=== PATIENT | female | born 1995 | race Caucasian/White ===

== ENCOUNTER 2019-07-08 01:34 | Emergency (ER) | payer SELFPAY ==
[~2019-07-08] VITALS: Ht 167.6 cm; Wt 88.0 kg
[~2019-07-08 01:34] MED LIST: BIRTH CONTROL
--- NOTE | 2019-07-08 01:40 | PHYS DOC ---
Past History Past Medical History: Alcoholism, Other Past Surgical History: Other Smoking: Non-smoker Alcohol Use: Occasionally Drug Use: None Adult General Chief Complaint Chief Complaint: ".. I accidently kicked 20 #cow garcia wt... I had left it in the floor... this right foot is swollen and starting to turn purple.. I took some ibuprofen 400, then tylenol 500 .. and then ibuprofen 400 befoe I [address] in.. 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 foot injury. Pt. accidently kicked a 20# cow garcia wt. . Has obvious edema and ecchymosis of distal Rt. foot. Localization of area toes 3 and 4. Negative upper foot squeeze, + distal foot squeeze. Pain with loading of toes 3 and 4. Distal neurovascular intact. No upper leg tenderness. Ankle stable. Heel stable. Patient is driving herself. Did take ibuprofen and Tylenol before presentation to the emergency department. History of previous right foot and ankle injury on 10/13/2014. Patient previously followed with Dr. Allan, currently follows with Daphney Camejo for care. Does have contacts with ill patients. No history immunosuppression. No history of travel outside [facility]. Is up-to-date with vaccinations including flu vaccination. Review of Systems Review of Systems Constitutional: Denies fever or chills [] Eyes: Denies change in visual acuity, redness, or eye pain [] HENT: Denies nasal congestion or sore throat [] Respiratory: Denies cough or shortness of breath [] Cardiovascular: No additional information not addressed in HPI [] GI: Denies abdominal pain, nausea, vomiting, bloody stools or diarrhea [] : Denies dysuria or hematuria [] Musculoskeletal: Complains of right foot injury Integument: Denies rash or skin lesions [] Neurologic: Denies headache, focal weakness or sensory changes [] Endocrine: Denies polyuria or polydipsia [] All other systems were reviewed and found to be within normal limits, except as documented in this note. Family History Family History Noncontributory presentation Current Medications Current Medications See nursing for home meds Allergies Allergies Allergies Coded Allergies Type Severity Reaction Last Updated Verified Penicillins Allergy Intermediate HIVES 10/13/14 Yes Physical Exam Physical Exam Constitutional: Well developed, well nourished, no acute distress, non-toxic appearance. [] HENT: Normocephalic, atraumatic, bilateral external ears normal, oropharynx moist, no oral exudates, nose normal. [] Eyes: PERRLA, EOMI, conjunctiva normal, no discharge. [] Neck: Normal range of motion, no tenderness, supple, no stridor. [] Cardiovascular:Heart rate regular rhythm, no murmur [] Lungs & Thorax: Bilateral breath sounds equal at apex auscultation [] Abdomen: Bowel sounds normal, soft, no tenderness, no masses, no pulsatile masses. [] Skin: Warm, dry, no erythema, no rash. [] Back: No tenderness, no CVA tenderness. [] Extremities: No tenderness, no cyanosis, no clubbing, ROM intact, no edema. [] Except findings of right foot injury as per history of present illness Neurologic: Alert and oriented X 3, normal motor function, normal sensory function, no focal deficits noted. [] Psychologic: Affect anxious, judgement normal, mood normal. [] EKG EKG [] Radiology/Procedures Radiology/Procedures [][place] [address] IMAGING REPORT Signed PATIENT: NARENDRA MILLER ACCOUNT: [id number] : 1995 LOCATION: ER AGE: 23 SEX: F EXAM STATUS: REG ER ORD. PHYSICIAN: FACUNDO HENRIQUEZ MD REASON: pain, accident -kicked weight- ecchymosis and edema PROCEDURE: FOOT RIGHT 3V FOOT RIGHT 3V DATE: 07/08/2019 2:00 AM INDICATION: Pain after kicking heavy object COMPARISON: 10/13/2014. FINDINGS: Bones: There is no evidence of acute fracture or dislocation. Joints: The joint spaces are normal. Miscellaneous: None. IMPRESSION: No evidence of acute fracture. Electronically signed by: Maura Aponte MD (07/08/2019 2:10 AM) [id number] DICTATED AND SIGNED BY: MAURA APONTE MD DATE: 07/08/19 0210 CC: FACUNDO HENRIQUEZ MD; PCP,NO ~ Course & Med Decision Making Course & Med Decision Making Pertinent Labs and Imaging studies reviewed. (See chart for details) Patient use Navid wrap. Elevate right foot and use ice packs. Continue Tylenol and ibuprofen. Follow-up primary care. Return if any concerns. For marked pain may take Vicoprofen up 4 times a day ( Narcotic Precautions -dependency and sedation). Distal neurovascular intact after Navid placement. Impression: 1. Contusion Rt. Foot. [] Dragon Disclaimer Dragon Disclaimer This electronic medical record was generated, in whole or in part, using a voice recognition dictation system. Departure Departure: Disposition: HOME/RESIDENCE PRIOR TO ADM Condition: STABLE Referrals: PCP,ERICA (PCP) Scripts Hydrocodone/Ibuprofen (HYDROCODONE-IBUPROFEN 7.5-200 ) 1 Each Tablet 1 TAB PO PRN Q6HRS PRN for PAIN, #30 TAB 0 Refills Prov: FACUNDO HENRIQUEZ MD 07/08/19 Dragon Disclaimer This chart was dictated in whole or in part using Voice Recognition software in a busy, high-work load, and often noisy Emergency Department environment. It may contain unintended and wholly unrecognized errors or omissions. FACUNDO HENRIQUEZ MD Jul 08, 2019 01:40
[2019-07-08] MEDS ORDERED: HYDR-1179 PO (02:13)
--- NOTE | 2019-07-08 02:13 | RAD ---
FOOT RIGHT 3V DATE: 07/08/2019 2:00 AM INDICATION: Pain after kicking heavy object COMPARISON: 10/13/2014. FINDINGS: Bones: There is no evidence of acute fracture or dislocation. Joints: The joint spaces are normal. Miscellaneous: None. IMPRESSION: No evidence of acute fracture. Electronically signed by: Sotero Aponte MD (07/08/2019 2:10 AM) [id number]
[2019-07-08 02:25] VITALS: BP 118/68
== END 2019-07-08 02:25 | disposition home or self-care (01) ==
LOC: ER 01:34
DX: S90.32XA Contusion of left foot, initial encounter (principal); F10.20 Alcohol dependence, uncomplicated; Z88.0 Allergy status to penicillin; Y90.9 Presence of alcohol in blood, level not specified; W22.8XXA Striking against or struck by other objects, initial encounter; Y93.89 Activity, other specified; Y92.89 Other specified places as the place of occurrence of the external cause; Y99.8 Other external cause status
CPT/HCPCS: 73630; 99283